=== PATIENT | female | born 1970 | race Two or more races ===

== ENCOUNTER 2016-08-03 22:49 | Emergency (ER) | payer SELFPAY ==
[~2016-08-03 22:49] MED LIST: KEFLEX500 M2 PO; [UNRECOGNIZED DRUG - REMARK]
== END 2016-08-03 23:29 | disposition home or self-care (01) ==
LOC: SED 22:49
DX: K61.1 Rectal abscess (principal); Z90.49 Acquired absence of other specified parts of digestive tract
CPT/HCPCS: 46040; 87070; 87205; 99283